=== PATIENT | male | born 1935 | race Caucasian/White ===

== ENCOUNTER 2018-01-09 06:42 | Day surgery (SDC) | payer MEDICARE, OTHER ==
[~2018-01-09 06:42] MED LIST: ACYCLOVIR400 MG PO; ADULT ASPIRIN E81 MG PO; ATENOLOL50 MG PO; B121000 MCG PO; BL IBUPROFEN200 MG PO; CALCIUM600 MG PO; CIPRO XR500 MG PO; DOCUSATE SOD100 MG PO; LORTAB 7.57.5 MG PO; MELATONIN5 M3 PO; NIACIN SR500 M1 PO; SAW PALMETTO450 MG PO; STOOL SOFTE1 PO; TRAMADOL HCL50 MG PO; VITAMIN D35000 UNIT PO; XALATAN0.005 % OD
[2018-01-09 10:21] VITALS: BP 137/69
== END 2018-01-09 10:40 | disposition home or self-care (01) ==
LOC: ORM 06:42
PROVIDERS: ATTEND Surgery
PROC: 0YU50JZ Supplement Right Inguinal Region with Synthetic Substitute, Open Approach (ICD-10-PCS; principal; 2018-01-09)
DX: K40.91 Unilateral inguinal hernia, without obstruction or gangrene, recurrent (principal); I10 Essential (primary) hypertension
CPT/HCPCS: C9290

== ENCOUNTER 2018-08-12 13:09 | Emergency (ER) | payer MEDICARE, OTHER ==
[~2018-08-12] VITALS: Ht 170.2 cm; Wt 63.6 kg
[2018-08-12 13:40] VITALS: BP 173/79
[2018-08-12] MEDS ORDERED: MEDDOSEPAK PO (14:19)
[2018-08-12] MEDS ORDERED: BENADRYL 50MG C50 MG PO (14:19)
[2018-08-12] MEDS ORDERED: PEPCID20 MG PO (14:19)
== END 2018-08-12 14:30 | disposition home or self-care (01) ==
LOC: ED 13:09
DX: T78.40XA Allergy, unspecified, initial encounter (principal); I10 Essential (primary) hypertension; E11.9 Type 2 diabetes mellitus without complications; X58.XXXA Exposure to other specified factors, initial encounter

== ENCOUNTER 2022-04-13 11:30 | Emergency (ER) | payer MEDICARE, OTHER ==
[~2022-04-13] VITALS: Ht 170.2 cm; Wt 65.0 kg
[2022-04-13] VITALS (10 sets, daily range): BP systolic 121–192; BP diastolic 72–102
[~2022-04-13 11:30] MED LIST changes: +BENADRYL 50MG C50 MG PO; +MEDDOSEPAK PO; +PEPCID20 MG PO
[2022-04-13 12:28] LABS: MEAN CELL VOLUME 96.8 fL CALC (80.0-100.0); NEUT# 4.49 thou/uL (1.82-7.42); RED BLOOD COUNT 4.66 mill/uL (4.70-6.10); RED CELL DISTRI WIDTH 13.1 % (11.5-15.5)
[2022-04-13 12:35] LABS: HEMATOCRIT 45.1 % (39.0-50.0); HEMOGLOBIN 14.9 g/dl (14.0-18.0)
[2022-04-13 12:45] LABS: ANION GAP 15 (6-22 (CALC)); BUN 17 mg/dL (8-23); BUN/CREATININE RATIO 26 (12-20 (CALC)); CARBON DIOXIDE 22 mmol/l (22-30); CHLORIDE 106 mmol/l (95-108); CREATININE 0.7 mg/dL (0.7-1.3); GFR FOR AFR.AMER. > 60 ML/MIN (>=60 (CALC)); GFR OTHER RACES > 60 ML/MIN (>=60 (CALC)); SGOT/AST 46 u/l (19-48); SODIUM 138 mmol/l (137-146)
[2022-04-13 12:47] LABS: ALKALINE PHOSPHATASE 95 u/l (38-126); BILIRUBIN, TOTAL 0.8 mg/dL (0.0-1.4); TOTAL PROTEIN 7.9 g/dL (6.3-8.2)
== END 2022-04-13 14:04 | disposition home or self-care (01) ==
LOC: ED 11:30
PROVIDERS: Nurse Practitioner
DX: I10 Essential (primary) hypertension (principal); E11.9 Type 2 diabetes mellitus without complications

== ENCOUNTER 2022-10-02 08:48 | Emergency (ER) | payer MEDICARE, OTHER ==
[~2022-10-02] VITALS: Ht 170.2 cm; Wt 62.9 kg
[2022-10-02] MEDS ORDERED: CYMBALTA30 MG PO (08:55)
[2022-10-02] MEDS ORDERED: ATORVASTATIN CA10 MG PO (08:56)
[2022-10-02] MEDS ORDERED: METHYLPRED4 MG PO (08:56)
[2022-10-02] MEDS ORDERED: MELOXICAM15 MG PO (08:57)
[2022-10-02] MEDS ORDERED: AMLODIPINE BESYL5 MG PO (08:57)
[2022-10-02] MEDS ORDERED: METFORMIN500 M2 PO (08:58)
[2022-10-02 09:27] LABS: BASO% 0.3 % (0-3); EOS% 0.1 % (0-8); HEMATOCRIT 44.8 % (39.0-50.0); IMMATURE GRANULOCYTES 0.1 % (0.0-5.0); LYMPH% 8.6 % (15-41); MEAN CELL VOLUME 97.8 fL CALC (80.0-100.0); MEAN CORPUSCULAR HGB 32.8 pG CALC (26.0-32.0); MEAN CORPUSCULAR HGB CONC 33.5 g/dL CAL (32.0-36.0); MONO% 8.2 % (2-13); NEUT# 7.8 thou/uL (1.82-7.42); NEUT% 82.7 % (42-76); RED BLOOD COUNT 4.58 mill/uL (4.70-6.10)
[2022-10-02 09:37] VITALS: BP 153/67
[2022-10-02 09:38] LABS: ALBUMIN 4.8 g/dL (3.2-5.0); ALKALINE PHOSPHATASE 86 u/l (38-126); BILIRUBIN, TOTAL 0.7 mg/dL (0.2-1.3); BUN 17 mg/dL (8-23); BUN/CREATININE RATIO 25 (12-20 (CALC)); CHLORIDE 102 mmol/l (95-108); CREATININE 0.7 mg/dL (0.7-1.3); GFR FOR AFR.AMER. > 60 ML/MIN (>=60 (CALC)); GFR OTHER RACES > 60 ML/MIN (>=60 (CALC)); POTASSIUM 3.9 mmol/l (3.5-5.1); SGOT/AST 30 u/l (19-48); SODIUM 137 mmol/l (137-146)
[2022-10-02 09:40] LABS: PROTHROMBIN TIME 10.3 SECONDS (9.0-12.5)
[2022-10-02 10:02] VITALS: BP 186/92
[2022-10-02 10:03] LABS: ANION GAP 17 (6-22 (CALC)); CARBON DIOXIDE 22 mmol/l (22-30)
[2022-10-02 10:18] VITALS: BP 142/99
[2022-10-02 10:30] VITALS: BP 152/72
[2022-10-02 11:01] VITALS: BP 128/87
[2022-10-02 11:40] VITALS: BP 128/87
== END 2022-10-02 11:41 | disposition left against medical advice (07) ==
LOC: ED 08:48
PROVIDERS: Family Medicine
DX: I63.9 Cerebral infarction, unspecified (principal); R20.0 Anesthesia of skin; G83.14 Monoplegia of lower limb affecting left nondominant side; R29.701 NIHSS score 1; I10 Essential (primary) hypertension; E11.9 Type 2 diabetes mellitus without complications; H40.9 Unspecified glaucoma; H54.62 Unqualified visual loss, left eye, normal vision right eye; Z79.84 Long term (current) use of oral hypoglycemic drugs; Z53.29 Procedure and treatment not carried out because of patient's decision for other reasons
CPT/HCPCS: Q9967